=== PATIENT | male | born 1965 | race Caucasian/White ===

== ENCOUNTER → 2018-07-24 | Outpatient (CLI) | payer OTHER ==
[~2018-07-24] MED LIST: IOPAMIDOL (ISOVUE-300) 100 ML BTL ONE
== END ==
LOC: CIMAGING 09:32
PROVIDERS: ATTEND Specialist
DX: D17.9 Benign lipomatous neoplasm, unspecified (principal); Q63.1 Lobulated, fused and horseshoe kidney
CPT/HCPCS: 71260-PO; Q9967